=== PATIENT | male | born 1965 | race African-American/Black ===

== ENCOUNTER 2016-12-27 08:40 | Observation (INO) ==
[2016-12-27] MEDS ORDERED: SODIUM CHLORIDE 0.9% 1,000 ML IV STA ×2 (09:52→11:02)
[2016-12-27] MEDS ORDERED: THIAMINE 200 MG/2 ML VIAL IM STA (09:52)
[2016-12-27] MEDS ORDERED: THIAMINE 200 MG/2 ML VIAL ONE (09:57)
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
[2016-12-27 10:17] LABS: Basophils # 0.1 10*3/uL (0.0-0.2); Basophils % 1.4 % (0.0-0.8); Eosinophils % 0.9 % (0.00-10.9); Hematocrit 38.9 VOL% (42.0-52.0); Hemoglobin 13.7 GM/DL (14.0-18.0); Immature Granulocytes % 0.5 %; Immature Granulocytes Absolute 0.02 #; Lymphocytes # 1.5 10*3/uL (1.4-4.0); Lymphocytes % 33.1 % (21.2-54.2); Mean Corpuscular HGB Conc 35.2 GM/DL (32-36); Mean Corpuscular Hemoglobin 33 PG (27-34); Mean Corpuscular Volume 92.2 FL (87-102); Mean Platelet Volume 10.3 FL (9.6-12.0); Monocytes # 0.5 10*3/uL (0.11-0.8); Monocytes % 10.8 % (1.7-12.7); Neutrophils # 2.4 10*3/uL (1.4-7.4); Neutrophils % 53.3 % (38.7-73.9); Platelet Count 264 T/CUMM (130-400); Red Blood Count 4.22 MC/CUMM (3.8-5.5); White Blood Count 4.4 T/CUMM (4-12)
[2016-12-27 10:21] LABS: Apearance,Urine CLEAR (Clear); Bilirubin,Urine Negative (Negative); Blood, Urine Negative (Negative); Glucose,Urine (UA) Negative (Negative); Ketones,Urine Negative (Negative); Nitrite,Urine Negative (Negative); Protein,Urine Negative; RBC,Urine <1 /HPF (0-4); Squamous Epithelial Cell,Urine Occasional /HPF (0-10); Urine Color Colorless (Yellow); Urine Specific Gravity 1.001 (1.001-1.035); Urine Urobilinogen < 2.0 EU/DL (0.2-1.0)
[2016-12-27 10:29] LABS: PT Patient Result 10.3 SECS; Partial Thromboplastin Time 26.1 SECS (0-40)
[2016-12-27 10:44] LABS: Barbiturates Screen,Urine Negative (Negative); Benzodiazepines Screen,Urine Negative (Negative); Cannabinoid Screen,Urine Negative (Negative); Opiate Screen,Urine Negative (Negative); Phencyclidine Screen,Urine Negative (Negative)
[2016-12-27 10:52] LABS: Alanine Aminotransferase 102 U/L (16-61); Albumin 3.9 G/DL (3.4-5.0); Alkaline Phosphatase 98 U/L (45-117); Aspartate Amino Transferase 102 U/L (0-37); Bilirubin,Total < 0.39 MG/DL (0.2-1.0); Blood Urea Nitrogen 4 MG/DL (7-18); Calcium 9.1 MG/DL (8.5-10.1); Glucose 70 MG/DL (74-106); Potassium 3.7 MMOL/L (3.5-5.1); Sodium 143 MMOL/L (136-145); Total Protein 7.7 G/DL (6.4-8.3)
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
[2016-12-27] MEDS ORDERED: THIAMINE INJ 100 MG, FOLIC ACID INJ 1 MG, MAGNESIUM SULF INJ 2 GM, MULTIVITAMIN INJ 10 ... IV ONE (13:19)
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
[2016-12-27] MEDS ORDERED: DEXTROSE 50% 25 GM/50 ML VIAL IV PRN (14:51)
[2016-12-27] MEDS ORDERED: GLUCAGON 1 MG VIAL IM PRN (14:51)
[2016-12-27] MEDS ORDERED: hydrALAZINE 20 MG/1 ML VIAL IV PRN (14:56)
[2016-12-27] MEDS ORDERED: LORazepam 2 MG/1 ML VIAL IV PRN (14:58)
[2016-12-27 15:21] LABS: Free T4 (Free Thyroxine) 0.71 NG/DL (0.76-1.46); Thyroid Stimulating Hormone 0.448 uIU/ml (0.358-3.74)
--- NOTE | 2016-12-27 15:22 | CT Report ---
CT of the chest without contrast. Indication: Shortness of breath. Abnormal chest x-ray. Comparison: November 13, 2010. The thyroid gland is normal in size. There is no supraclavicular or axillary lymphadenopathy. There is calcific plaque present within a normal caliber thoracic aorta. The heart is mildly enlarged. There is no pericardial or pleural effusion. There are mild paraseptal and centrilobular emphysematous changes present. There is atelectasis noted in each lung base. Within the left lung base, involving the left lingula and left lower lobe, mixed interstitial and alveolar infiltrates are present. Degenerative changes are noted within the spinal column. Healed rib fractures are noted on the right. Impression: 1. COPD. 2. Superimposed mixed alveolar and interstitial pneumonia within the left lung base. The CT exam was performed using one or more of the following dose reduction techniques: Automated exposure control, adjustment of the mA and/or kV according to patient size, or use of iterative reconstruction technique. PROCEDURE INTERPRETED AT [facility] DEPARTMENT OF RADIOLOGY Final Report Signed by: Dr. Kiesha Omalley
--- NOTE | 2016-12-27 15:30 | EKG Report ---
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
[2016-12-27 16:04] LABS: Hepatitis A Ab IgM Quant 0.19 Index; Hepatitis A Ab IgM Result Negative (Negative); Hepatitis B Core IgM Quant 0.23 Index; Hepatitis B Core IgM Result Negative (Negative); Hepatitis B Surface Ag Quant < 0.10 Index; Hepatitis B Surface Ag Result Negative (Negative); Hepatitis C Virus Ab Quant 0.08 Index; Hepatitis C Virus Ab Result Negative (Negative)
[2016-12-27 16:12] LABS: Magnesium 2.3 MG/DL (1.8-2.4); Phosphorous 4.2 MG/DL (2.5-4.9)
[2016-12-27] MEDS: INSULIN LISPRO 100 UNIT/ML SUBCUT SCH ×2 (18:02→21:48)
[2016-12-27] MEDS: CLORAZEPATE 7.5 MG TABLET PO SCH (22:18)
[2016-12-28 05:52] LABS: Basophils # 0.1 10*3/uL (0.0-0.2); Basophils % 1.3 % (0.0-0.8); Eosinophils # 0.1 10*3/uL (0.0-0.87); Eosinophils % 0.9 % (0.00-10.9); Hematocrit 38.5 VOL% (42.0-52.0); Hemoglobin 13.4 GM/DL (14.0-18.0); Immature Granulocytes % 0.3 %; Immature Granulocytes Absolute 0.02 #; Lymphocytes # 1.2 10*3/uL (1.4-4.0); Mean Corpuscular HGB Conc 34.8 GM/DL (32-36); Mean Corpuscular Hemoglobin 32 PG (27-34); Mean Corpuscular Volume 92.1 FL (87-102); Mean Platelet Volume 11.1 FL (9.6-12.0); Monocytes % 15.3 % (1.7-12.7); Neutrophils # 4.3 10*3/uL (1.4-7.4); Neutrophils % 64.2 % (38.7-73.9); Platelet Count 285 T/CUMM (130-400); Red Blood Count 4.18 MC/CUMM (3.8-5.5); White Blood Count 6.7 T/CUMM (4-12)
[2016-12-28 06:27] LABS: Albumin 3.5 G/DL (3.4-5.0); Bilirubin,Total 0.7 MG/DL (0.2-1.0); Calcium 9.3 MG/DL (8.5-10.1); Magnesium 2.4 MG/DL (1.8-2.4); Osmolality,Calculated 273.5 MOS/KG (273-304); Phosphorous 3.6 MG/DL (2.5-4.9); Potassium 4.3 MMOL/L (3.5-5.1); Total Protein 7.1 G/DL (6.4-8.3)
[2016-12-28] MEDS: CLORAZEPATE 7.5 MG TABLET PO SCH ×3 (09:39→21:02)
[2016-12-28] MEDS: MULTIVITAMIN (BEROCCA) TABLET PO SCH (09:39)
[2016-12-28] MEDS: FOLIC ACID 1 MG TABLET PO SCH (09:39)
[2016-12-28] MEDS: INSULIN LISPRO 100 UNIT/ML SUBCUT SCH ×4 (09:39→21:03)
[2016-12-28] MEDS: THIAMINE 100 MG TABLET PO SCH (09:39)
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
[2016-12-29] MEDS: INSULIN LISPRO 100 UNIT/ML SUBCUT SCH ×4 (08:46→20:49)
[2016-12-29] MEDS: MULTIVITAMIN (BEROCCA) TABLET PO SCH (09:02)
[2016-12-29] MEDS: FOLIC ACID 1 MG TABLET PO SCH (09:02)
[2016-12-29] MEDS: CLORAZEPATE 7.5 MG TABLET PO SCH ×3 (09:02→20:50)
[2016-12-29] MEDS: THIAMINE 100 MG TABLET PO SCH (09:02)
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
[2016-12-30] MEDS: INSULIN LISPRO 100 UNIT/ML SUBCUT SCH ×3 (08:59→17:06)
[2016-12-30] MEDS: MULTIVITAMIN (BEROCCA) TABLET PO SCH (09:09)
[2016-12-30] MEDS: THIAMINE 100 MG TABLET PO SCH (09:09)
[2016-12-30] MEDS: CLORAZEPATE 7.5 MG TABLET PO SCH (09:09)
[2016-12-30] MEDS: FOLIC ACID 1 MG TABLET PO SCH (09:09)
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
[2016-12-30] MEDS ORDERED: LEVOFLOXACIN 500 MG TABLET PO SCH (14:00)
[2016-12-30] MEDS ORDERED: LISINOPRIL 5 MG TABLET PO SCH (14:00)
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
[2016-12-30 18:00] VITALS: BP 149/83
[2016-12-30] MEDS ORDERED: CLORAZEPATE 3.75 MG TABLET PO SCH (21:00)
== END 2016-12-30 17:56 | disposition hospice, home (50) ==
LOC: EDBD → EDUNIT# → N.ED 08:40 → N.EDINP 08:40 → SUATTDRO 13:47 → N.EDINP 16:23 → N.3E 16:32
PROVIDERS: ADMIT Pediatrics; ATTEND Hospitalist